=== PATIENT | female | born 2000 | race Caucasian/White ===

== ENCOUNTER 2023-06-26 10:24 | Outpatient (CLI) | payer BC | END 2023-06-26 10:25 | disposition home or self-care (01) | LOC: SCSMRI 10:24 | PROVIDERS: ATTEND Orthopaedic Surgery | DX: Z09 Encounter for follow-up examination after completed treatment for conditions other than malignant neoplasm (principal); M22.42 Chondromalacia patellae, left knee; Z98.890 Other specified postprocedural states ==